=== PATIENT | female | born 1990 | race Two or more races ===

== ENCOUNTER 2025-04-24 05:30 | Day surgery (SDC) | payer OTHER, SELFPAY ==
--- NOTE | 2025-04-22 20:31 | ESHP_ITS ---
RE: SERGEY FELIX : 1990 DATE OF ADMISSION: 04/24/2025 DATE OF SURGERY: 04/24/2025 This is a 34-year-old 3, para 3 who has abnormal uterine bleeding. ALLERGIES: LATEX, SHRIMP AND RAISINS. MEDICATIONS: 1. Levothyroxine 25 mcg one p.o. daily. 2. Methimazole 5 mg one p.o. t.i.d. PAST MEDICAL HISTORY: Adenomyosis of the uterus; genital herpes; hyperthyroidism, on methimazole and Synthroid; mild tricuspid regurgitation; cervical dysplasia; gallstones; cholestasis of . Seasonal allergies. PAST SURGICAL HISTORY: Laparoscopic cholecystectomy, LEEP cone biopsy of the cervix. FAMILY HISTORY: Mother has migraine headaches, heart disease, diabetes, hypothyroidism. REVIEW OF SYSTEMS: She denies any chest pain, palpitations, cough, fever, shortness of breath or lower extremity pain. PHYSICAL EXAMINATION: VITAL SIGNS: Blood pressure 110/70, heart rate 88, respirations 18, temperature is 98.6. HEENT: Oropharynx and sclerae are clear. LUNGS: Clear to auscultation bilaterally. HEART: Regular rate and rhythm. ABDOMEN: Old trocar scars noted. EXTREMITIES: Nontender. SKIN: No gross rashes or lesions. NEUROLOGIC: No focal deficit. ASSESSMENT: Abnormal uterine bleeding. PLAN: Hysteroscopy, fractional dilatation, curettage and NovaSure endometrial ablation. Informed consent was obtained. The patient was made aware of the risks, complications, alternatives and benefits of the proposed procedure and she agrees. She is aware of the risk of injury to bowel or bladder, adjacent organs, pulmonary embolism, deep vein thrombosis, pelvic infection, wound infection, re-operation, temporary injury to internal organs, possibility that a laparotomy needs to be performed to repair organs and control bleeding, the possibility the procedure is not able to be completed due to severe adhesions or technical difficulties. DT: 18:28:25 TT: 20:29:00 Ref: [id number] - TID: [id number] MTDD
[2025-04-23 07:44] VITALS: BMI 23.9
[2025-04-23 08:51] LABS: Basophils # (Auto) 0.0 Thou/mm3 (0.0-0.2); Basophils % (Auto) 0 % (0-2.5); Eosinophils # (Auto) 0.0 Thou/mm3 (0.0-0.5); Eosinophils % (Auto) 1 % (0-10); Hematocrit 37.8 % (36.0-46.0); Hemoglobin 13.0 g/dL (12.0-16.0); Immature Granulocytes Auto 0.01 Thou/mm3 (0.00-0.00); Lymphocytes # (Auto) 1.9 Thou/mm3 (1.0-4.8); Lymphocytes % (Auto) 34 % (10-50); Mean Corpuscular HGB Conc 34.4 g/dl (31.0-37.0); Mean Corpuscular Hemoglobin 31.1 pg (25.0-35.0); Mean Corpuscular Volume 90 fL (80-100); Monocytes # (Auto) 0.4 Thou/mm3 (0.0-0.8); Monocytes % (Auto) 7 % (0-12); Neutrophils # (Auto) 3.2 Thou/mm3 (1.8-7.7); Neutrophils % (Auto) 58 % (37-80); Nucleated Red Blood Cell # 0.00 Thou/mm3 (0.00-0.00); Nucleated Red Blood Cell % 0 /100 WBC (0); Platelet Count 225 Thou/mm3 (140-440); RDW Standard Deviation 39.6 fL (36.4-46.3); Red Blood Count 4.18 Miln/mm3 (4.00-5.20); White Blood Count 5.5 Thou/mm3 (3.6-11.0)
[2025-04-23 09:05] LABS: Alanine Aminotransferase 10 U/L (10-49); Albumin, Serum 4.2 gm/dL (3.5-5.0); Albumin/Globulin Ratio 1.8 (1.2-2.2); Alkaline Phosphatase 51 U/L (46-116); Anion Gap 10 (7-16); Aspartate Amino Transferase 16 U/L (0-34); BUN/Creatinine Ratio 10 Ratio (12-20); Beta HCG,Quantitative < 1 mIU/mL (<5.0); Bilirubin,Total 0.5 mg/dL (0.3-1.2); Blood Urea Nitrogen 9 mg/dL (9-23); Calcium 9.2 mg/dL (8.3-10.6); Calcium (Corrected) 9.2 mg/dL (8.5-10.1); Carbon Dioxide 28.4 mMol/L (20.0-31.0); Chloride 103 mMol/L (98-107); Creatinine (Component) 0.9 mg/dL (0.6-1.3); Estimated Creatinine Clearance 77.8 mL/min (>60); Globulin 2.4 gm/dL (2.3-3.5); Glucose 94 mg/dL (74-106); Osmolality,Calculated 279 (275-295); Potassium 3.7 mMol/L (3.4-5.1); Sodium 141 mMol/L (136-145); Total Protein 6.6 gm/dL (5.7-8.2); eGFR > 60 See Note
[2025-04-23 09:22] LABS: INR 1.0 (0.9-1.3); Partial Thromboplastin Time 28.2 Seconds (22.0-36.0); Prothrombin Time 10.9 Seconds (9.0-12.2)
[2025-04-24] VITALS (7 sets, daily range): BP systolic 99–105; BP diastolic 63–71; PULSE 55–72; RESP 12–18; TEMP 36.2–36.6; O2SAT 97–100; BMI 23.5
--- NOTE | 2025-04-24 07:15 | CHAP ---
Visited with patient and discovered that I am friends with the patient's father. I gave her encouragement and prayer.
--- NOTE | 2025-04-24 08:18 | SUR.PHASEI ---
pt received from OR in recovery bay 1. pt asleep but responds to voice, breathing unlabored on oxymask 6l. v/s stable. pt dressing peripad cdi. report received from Leopoldo Sparks and Dr. Galvan.
--- NOTE | 2025-04-24 08:27 | SUR.PHASEI ---
pt able to tolerate oral fluids without difficulty swallowing or nausea/vomiting.
--- NOTE | 2025-04-24 08:36 | ESOP_ITS ---
Operative Note - BEAUTICIAN APPRENTICE Procedure Date of procedure: 04/24/25 Procedure Performed: Hysteroscopy Fractional dilatation curettage NovaSure endometrial ablation Indication: Abnormal uterine bleeding Pre-Op diagnosis: Abnormal uterine bleeding Post-Op diagnosis: Abnormal uterine bleeding Anesthesia type: General Procedure description: After proper informed consent was obtained. The patient was made aware of the risk complications alternatives and benefits of the proposed procedure. She was taken to the operating room where she underwent induction of general anesthesia. She is placed in the dorsal lithotomy position. She was prepped and draped in the usual sterile fashion. A red rubber catheter was placed to drain the bladder. She received 2 g of Ancef and KIN hose and sequential compression device was in place. A timeout was performed. A bivalve speculum was placed in the vagina. The anterior lip of the cervix was grasped with a tenaculum. The cervix was dilated to accommodate the 5.5 mm Omni hysteroscope. The hysteroscope was then utilized to visualize the endocervix and uterine cavity. There were no submucous myomas or polyps or distortions or irregularities of the uterine cavity. The uterus was anteverted and sounded to 8.0 cm. The uterine cavity length was 5.0 cm. The endocervix was curetted with a Kevorkian curette and specimen sent to pathology. The uterine cavity was curetted with a 5 mm curette and specimen sent to pathology. The NovaSure catheter was plugged into the controller. It went through its purge cycle. 5.0 cm was entered on the catheter length. The catheter was appropriately seated in the uterine cavity. The width meter read 3.0 cm. The carbon oxide cavity integrity assessment test was performed. The cavity was intact. The ablation was performed performed for a total of 53 seconds. The controller shut off. The array was retracted into the sheath and the catheter removed from the uterine cavity. The gold mesh array was redeployed and found to be complete and intact. There was bleeding noted on the anterior lip of the cervix at the site of the tenaculum. Using a Bovie cautery hemostasis was achieved. She was reversed from general anesthesia in the supine position and she was transferred to the cover room in stable condition. She tolerated the procedure well counts were correct. I discussed with the patient's family the nature of her condition and the intraoperative findings expectation for recovery all questions answered. Estimated blood loss (ml): 5 Findings: Uterus sounded to 8.0 cm Cervical length 3.0 cm Uterine cavity length 5.0 cm Uterine cavity width 3.0 cm Power setting 83 W Duration of ablation 53 seconds Saline absorbed hysteroscopically 110 cc. Complications: none Surgical staff Dr Ana Rosa GODDARD Anethesia. Operation Date: 04/24/25 07:30 Case Staff Anesthesiologist: Herbie Galvan Diagnosis Discharge Diagnosis (1) Abnormal uterine bleeding: Status: Acute (2) S/P endometrial ablation: Status: Acute Problem List Completed Was Problem List Reviewed/Reconciled?: Yes
--- NOTE | 2025-04-24 09:08 | SUR.PHASEII ---
pt awake and alert, breathing unlabored on room air. v/s stable. pt dressing peripad cdi. pt able to ambulate to wheelchair with steady gait. d/c instructions given with parents in room, all questions answered. pt d/c via wheelchair with all belongings.
== END 2025-04-24 09:08 | disposition home or self-care (01) ==
PROVIDERS: PCP Family Medicine; Referring Provider Specialist; Visit Provider Specialist
PROC: 0U5B8ZZ Destruction of Endometrium, Via Natural or Artificial Opening Endoscopic (ICD-10-PCS; CPT 58563; principal; 2025-04-24 07:30)
DX: N85.8 Other specified noninflammatory disorders of uterus (principal); Z90.49 Acquired absence of other specified parts of digestive tract
CPT/HCPCS: 58563; 36415; 80053; 84702; 85025; 85610; 85730; 86850; 86900; 86901; A4217; A4649; J0131; J0461; J0690; J1100; J2250; J2405; J2704; J3010